=== PATIENT | male | born 1995 | race Two or more races ===

== ENCOUNTER 2020-06-16 16:53 | Emergency (ER) | payer OTHER ==
[~2020-06-16] VITALS: Ht 162.6 cm; Wt 63.0 kg
== END 2020-06-16 21:16 | disposition home or self-care (01) ==
LOC: ER 16:53
DX: R42 Dizziness and giddiness (principal); M94.0 Chondrocostal junction syndrome [Tietze]

== ENCOUNTER 2024-04-02 20:21 | Emergency (ER) | payer OTHER | END 2024-04-03 04:13 | disposition home or self-care (01) | LOC: ER 20:23 | DX: R07.9 Chest pain, unspecified (principal); E78.49 Other hyperlipidemia ==